=== PATIENT | female | born 1990 | race Two or more races ===

== ENCOUNTER 2025-05-16 14:43 | Emergency (ER) | payer OTHER ==
[~2025-05-16] VITALS: Ht 170.2 cm; Wt 79.5 kg
--- NOTE | 2025-05-16 14:52 | Physician Documentation ---
History of Present Illness ~ Chief Complaint: Chest Pain Stated Complaint: CP Time Seen by MD: 15:07 [facility] 35-year-old female [place] Was in the car driving, began to feel some palpitations and what she describes as chest pressure. She also reports some dizziness, nausea, light-headedness. She notes that she does experience intermittent palpitations. Symptoms ongoing times a couple of weeks. Plans to see PCP soon. Denies chills or fever, dyspnea. Medication Reconciliation Allergies: Coded Allergies: No Known Allergies (Unverified , 05/16/25) Review of Systems ROS As stated above in the HPI, otherwise all systems are reviewed and negative. Physical Exam Vital Signs: Temperature: 97.4, Source: Temporal, Heart Rate: 108, Respiratory Rate: 16, BP: 152/100, Pulse Oximetry: 99, Weight: 79.550 Oxygen Flow Rate: 0 Physical Exam General: Alert, no apparent distress. HEENT: PERRL, EOMI, no injection, moist mucous membranes. Neck: Full range of motion. Respiratory: Lungs clear, no respiratory distress. Chest: No accessory muscle use. Cardiovascular: Regular rate and rhythm, no murmurs. Tachycardic. Gastrointestinal: Soft, nontender, nondistended. Bowels sounds present. Extremities: Normal range of motion, no deformity. Neurologic: Oriented x4. Psychiatric: Normal mood and affect. Skin: Normal color, warm and dry. No edema, no ecchymosis. Progress Results/Orders Results/Orders Vital Signs 05/16/25 05/16/25 14:46 15:07 Temp 97.4 Pulse 108 Resp 16 B/P (MAP) 152/100 Pulse Ox 99 O2 Flow Rate 0 Laboratory Tests Test 05/16/25 14:54 White Blood Count 10.1 Red Blood Count 4.59 Hemoglobin 13.3 Hematocrit 40.9 Mean Corpuscular Volume 89.1 Mean Corpuscular Hemoglobin 28.9 Mean Corpuscular Hemoglobin Concent 32.5 L Red Cell Distribution Width 13.4 Platelet Count 305 Mean Platelet Volume 7.6 Neutrophils (%) (Auto) 53.4 Lymphocytes (%) (Auto) 38.0 Monocytes (%) (Auto) 5.3 Eosinophils (%) (Auto) 2.8 Basophils (%) (Auto) 0.5 Neutrophils # (Auto) 5.4 Lymphocytes # (Auto) 3.8 Monocytes # (Auto) 0.5 Eosinophils # (Auto) 0.3 Basophils # (Auto) 0.1 CBC Comment Sodium Level 137 Potassium Level 3.7 Chloride Level 102 Carbon Dioxide Level 25.8 Anion Gap 9 Blood Urea Nitrogen 9 Creatinine 0.71 Estimated GFR/1.73 m2 > 90 BUN/Creatinine Ratio 12.7 Glucose Level 96 Calcium Level 9.1 Troponin I High Sensitivity 4 Albumin 3.8 Chemistry Comments Medical Decision Making Findings This patient's exam, laboratory values and EKG are all grossly reassuring. I discussed with the patient that her palpitations are likely secondary to stress, alcohol, caffeine or the lack of sleep. Also has a history of anxiety which is a large contributor. I spoke to her about following up with primary care if she really wants to investigate her palpitations she came get a referral to Cardiology and get a Holter monitor. She appeared reassured with his knowledge. At this time patient meets criteria for safe discharge Departure Disposition: HOME / SELF CARE / HOMELESS Impression: Primary Impression: Palpitations Condition: Stable Discharge Instructions: Palpitations, [id number] Referrals: NO PRIMARY CARE PROVIDER (PCP) Signature Scribe Signature: x Attestation: The note accurately reflects work and decisions made by me.Antia Agustin NP 05/16/25 14:51 ANITA ESCALERA NP May 16, 2025 14:51 LOAN AJ NP May 16, 2025 15:28
--- NOTE | 2025-05-16 14:56 | ELECTROCARDIOGRAPH REPORT ---
[facility] Test Date: 2025-05-16 Test Time: 14:54:05 Pat Name: SHANEKA DENNY Department: [facility] Patient ID: [facility]-[id number] Room: Gender: F Classification And Treatment Director: : 1990 Requested By: ANITA ESCALERA Order Number: [id number] Reading MD: Measurements Intervals [place] Rate: 99 P: 56 TN: 163 QRS: 20 QRSD: 90 T: 39 QT: 338 QTc: 434 Interpretive Statements Sinus rhythm Baseline wander in lead(s) I,II,aVR,aVL,aVF,V1,V2,V3,V4,V5,V6 Please click the below link to view image of tracing.
[2025-05-16 15:05] LABS: MEAN PLATELET VOLUME 7.6 FL (7.4-10.4); RED CELL DISTRIBUTION WIDTH 13.4 % (11.5-14.5)
[2025-05-16 15:23] LABS: CREATININE 0.71 MG/DL (0.40-0.90); TOTAL CARBON DIOXIDE 25.8 MMOL/L (24-32); eCRCL 109 ML/MIN; eGFR > 90 ML/MIN
[2025-05-16 15:35] VITALS: BP 120/80; PULSE 88; RESP 16; TEMP 98; O2SAT 97
== END 2025-05-16 15:37 | disposition home or self-care (01) ==
LOC: ER 14:44
DX: R00.2 Palpitations (principal); R42 Dizziness and giddiness; R11.0 Nausea
CPT/HCPCS: 36415; 80048; 84484; 85025; 93005; 99284